=== PATIENT | female | born 1980 | race American Indian/Alaskan Native ===

== ENCOUNTER 2017-02-02 12:57 | Outpatient (CLI) | payer BC ==
--- NOTE | 2017-02-02 14:24 | XRay Report ---
CERVICAL SPINE SERIES THREE VIEWS: 02/02/17 12:57:00 CLINICAL: Neck pain. FINDINGS: Exaggerated cervical lordosis. However, normal vertebral body height, alignment and disc spaces. Small anterior osteophytes C4-5 and C5-6. The facet joints are normal. Midline posterior thoracic skin bry. IMPRESSION: Minimal degenerative change. No apparent traumatic injury.
== END 2017-02-02 12:58 | disposition home or self-care (01) ==
LOC: SPVIMAG 12:57
PROVIDERS: ATTEND Neurological Surgery
DX: M47.892 Other spondylosis, cervical region (principal); S22.052A Unstable burst fracture of T5-T6 vertebra, initial encounter for closed fracture; M25.78 Osteophyte, vertebrae; X58.XXXA Exposure to other specified factors, initial encounter; Y93.89 Activity, other specified; Y92.89 Other specified places as the place of occurrence of the external cause; Y99.8 Other external cause status
CPT/HCPCS: 72040; 72072